=== PATIENT | female | born 1960 | race Caucasian/White ===

== ENCOUNTER 2020-08-05 01:26 | Inpatient (IN) | payer OTHER ==
[2020-08-05] VITALS (57 sets, daily range): BP systolic 78–133; BP diastolic 40–98
[~2020-08-05] VITALS: Ht 165.1 cm; Wt 81.6 kg
[2020-08-05] MEDS ORDERED: ACETAMINOPHEN 325MG TABLET PO STA (01:55)
[2020-08-05] MEDS ORDERED: AZITHROMYCIN 500 MG in DEXT 5% WATER 250 ML IV ONE (02:00)
[2020-08-05] MEDS ORDERED: SODIUM CHLORIDE 0.9% 1,000 ML IV ONE ×2 (02:00→04:45)
[2020-08-05] MEDS ORDERED: CEFTRIAXONE 1 G PREMIX 50 ML IV ONE (02:00)
[2020-08-05 02:23] LABS: BASOPHILS % 0.2 % (0.0-2.0); EOSINOPHILS % 0.1 % (0.0-5.0); HEMATOCRIT. 26.5 % (36.0-48.0); HEMOGLOBIN. 8.8 g/dL (12.0-16.0); LYMPHOCYTES % 13.7 % (20.0-50.0); MEAN CORPUSCULAR VOLUME 105.1 fL (81.0-99.0); MEAN PLATELET VOLUME 8.2 fl (7.4-10.4); MONOCYTES % 4.8 % (2.0-8.0); NEUTROPHILS % 81.2 % (40.0-76.0); PLATELET 89 x1000/uL (130-400); RED BLOOD CELL COUNT 2.52 mill/uL (4.2-5.4); RED CELL DISTRIBUTION WIDTH 15.4 % (11.6-14.6)
[2020-08-05] MEDS ORDERED: ACETAMINOPHEN 650MG SUPP PR ONE (02:30)
[2020-08-05 02:31] LABS: CHLORIDE 104 mEq/L (98-107)
[2020-08-05 02:34] LABS: ETHANOL BLOOD < 10 mg/dL
[2020-08-05 02:40] LABS: D-DIMER 18.45 mg/L FEU (<0.50); PROTHROMBIN TIME 20.1 sec (9.6-11.0)
[2020-08-05 02:46] LABS: BG BASE EXCESS -0.4 mmol/L (-2.0-2.0); BG CARBOXYHEMOGLOBIN 0.7 % (0.5-1.5); BG FRACTION INSPIRED OXYGEN 21; BG HCO3 ACT 21.6 mmol/L (22.0-26.0); BG METHEMOGLOBIN 0.1 % (0.0-1.5); BG OXYHEMOGLOBIN 93.2 % (94.0-97.0); BG PCO2 26.1 mmHg (35.0-45.0); BG PH 7.535 (7.350-7.450); BG PO2 66.3 mmHg (75.0-100.0); BG SAMPLE SITE RIGHT RADIAL; BG TOTAL HEMOGLOBIN 9.1 g/dL (12.0-18.0); BG VENT MODE ROOM AIR
[2020-08-05] MEDS: NOREPINEPHRINE 8MG/250ML PMX 250 ML IV STA ×2 (05:29→06:53)
[2020-08-05] MEDS ORDERED: NOREPINEPHRINE 8 MG in DEXTROSE 5% WATER 250 ML IV PRN (06:45)
[2020-08-05] MEDS ORDERED: NOREPINEPHRINE 8 MG in SODIUM CHLORIDE 0.9% 242 ML IV SCH (07:00)
[2020-08-05] MEDS ORDERED: NOREPINEPHRINE 8 MG in DEXT 5% WATER 242 ML IV PRN (07:45)
[2020-08-05] MEDS ORDERED: DOCUSATE SODIUM 100MG CAPSULE PO PRN (07:45)
[2020-08-05] MEDS ORDERED: ACETAMINOPHEN 325MG TABLET PO PRN ×2 (07:45)
[2020-08-05] MEDS ORDERED: KETOROLAC 15MG/ML VIAL IV PRN (07:45)
[2020-08-05] MEDS ORDERED: AZITHROMYCIN 500 MG in DEXT 5% WATER 250 ML IV SCH ×2 (07:45→21:00)
[2020-08-05] MEDS ORDERED: NITROGLYCERIN 0.4MG TABLET SL SL PRN (07:45)
[2020-08-05] MEDS ORDERED: GUAIFENESIN 200MG/10ML SUGAR FREE UDC PO PRN (07:45)
[2020-08-05] MEDS ORDERED: ALBUTEROL 6.7GM HFA INHALER ORI PRN (07:45)
[2020-08-05] MEDS ORDERED: ONDANSETRON HCL 4MG/2ML INJ IV PRN (07:45)
[2020-08-05] MEDS ORDERED: GUAIFENESIN/DM 600MG/30MG ER TAB 12HR PO SCH (07:45)
[2020-08-05] MEDS ORDERED: MAGNESIUM/ALUMINUM HYDROXIDE/SIMETHICONE 30ML UDC PO PRN (07:45)
[2020-08-05] MEDS ORDERED: CLONIDINE 0.1MG TABLET PO PRN (07:45)
[2020-08-05] MEDS: LACTULOSE 20G/30ML UDC PO SCH ×4 (08:00→20:29)
[2020-08-05 08:55] LABS: CLARITY URINE TURBID (CLEAR); COLOR URINE ORANGE (YELLOW); KETONES URINE NEGATIVE (NEGATIVE); LEUKOCYTE ESTERASE URINE 3+ (NEGATIVE); NITRITE URINE POSITIVE (NEGATIVE); OCCULT BLOOD URINE 3+ (NEGATIVE); PROTEIN URINE 3+ (NEGATIVE); SPECIFIC GRAVITY URINE 1.015 (1.005-1.030)
[2020-08-05] MEDS: CHOLECALCIFEROL (D3) 1000 UNIT TABLET PO SCH (09:00)
[2020-08-05] MEDS: ZINC SULFATE 220 MG ( 50 ) CAPSULE PO SCH (09:00)
[2020-08-05 09:38] LABS: VITAMIN B12 SERUM >2000 pg/mL pg/mL (211-911)
[2020-08-05] MEDS: PANTOPRAZOLE SODIUM 40 MG/VIAL IV SCH (09:45)
[2020-08-05] MEDS: ASCORBIC ACID 500 MG TABLET PO SCH ×2 (09:46→20:29)
[2020-08-05] MEDS: GUAIFENESIN/DM 600MG/30MG ER TAB 12HR PO SCH ×2 (09:46→20:29)
[2020-08-05 09:54] LABS: *AMPHETAMINES SCREEN URINE NEGATIVE (NEGATIVE); *BARBITURATES SCREEN URINE NEGATIVE (NEGATIVE); *BENZODIAZEPINES SCREEN URINE NEGATIVE (NEGATIVE); *COCAINE SCREEN URINE NEGATIVE (NEGATIVE)
[2020-08-05 09:55] LABS: CANNABINOID URINE SCREEN NEGATIVE (NEGATIVE); METHADONE URINE SCREEN NEGATIVE (NEGATIVE); OPIATES URINE SCREEN NEGATIVE (NEGATIVE); PHENCYCLIDINE URINE SCREEN NEGATIVE (NEGATIVE)
[2020-08-05] MEDS ORDERED: ALBUMIN HUMAN 25GM/100ML (25%) IV NR (10:15)
[2020-08-05] MEDS: NOREPINEPHRINE 8 MG in DEXT 5% WATER 242 ML IV PRN ×2 (13:24→16:55)
[2020-08-05 15:14] LABS: CREATINE KINASE MB FRACTION 3.7 ng/mL (0.5-3.6)
[2020-08-05] MEDS ORDERED: VANCOMYCIN 1500MG in DEXTROSE 5% WATER 250ML IV SCH (18:00)
[2020-08-05] MEDS ORDERED: PHYTONADIONE 10MG/ML AMP SUBCUT NR (20:00)
[2020-08-05] MEDS ORDERED: CEFTRIAXONE 1 G PREMIX 50 ML IV SCH (21:00)
[2020-08-05] MEDS: CEFEPIME 1,000 MG in DEXTROSE 5% WATER 50 ML IV SCH (21:12)
[2020-08-05] MEDS: NOREPINEPHRINE 32 MG in DEXT 5% WATER 218 ML IV PRN (22:59)
[2020-08-06] VITALS (96 sets, daily range): BP systolic 89–131; BP diastolic 52–78
[2020-08-06 00:39] LABS: CREATINE KINASE MB FRACTION 4.3 ng/mL (0.5-3.6)
[2020-08-06] MEDS: AZITHROMYCIN 500 MG in DEXT 5% WATER 250 ML IV SCH (01:13)
[2020-08-06] MEDS: LACTULOSE 20G/30ML UDC PO SCH ×6 (04:44→22:18)
[2020-08-06 05:40] LABS: BASOPHILS % 0.2 % (0.0-2.0); HEMATOCRIT. 25.8 % (36.0-48.0); HEMOGLOBIN. 8.7 g/dL (12.0-16.0); LYMPHOCYTES % 9.2 % (20.0-50.0); MEAN CORPUSCULAR HEMOGLOBIN 34.5 pg (28.0-32.0); MEAN CORPUSCULAR VOLUME 102.3 fL (81.0-99.0); MEAN PLATELET VOLUME 8.8 fl (7.4-10.4); MONOCYTES % 8.6 % (2.0-8.0); PLATELET 68 x1000/uL (130-400); RED BLOOD CELL COUNT 2.53 mill/uL (4.2-5.4); RED CELL DISTRIBUTION WIDTH 17.8 % (11.6-14.6)
[2020-08-06 05:50] LABS: CHLORIDE 106 mEq/L (98-107)
[2020-08-06 06:00] LABS: PHOSPHORUS 4.6 mg/dL (2.5-4.9)
[2020-08-06 06:29] LABS: INR 2.2; PROTHROMBIN TIME 21.8 sec (9.6-11.0)
[2020-08-06] MEDS: CHOLECALCIFEROL (D3) 1000 UNIT TABLET PO SCH (08:13)
[2020-08-06] MEDS: CEFEPIME 1,000 MG in DEXTROSE 5% WATER 50 ML IV SCH ×2 (08:13→22:19)
[2020-08-06] MEDS: GUAIFENESIN/DM 600MG/30MG ER TAB 12HR PO SCH ×2 (08:13→22:19)
[2020-08-06] MEDS: ASCORBIC ACID 500 MG TABLET PO SCH ×2 (08:13→22:18)
[2020-08-06] MEDS: ZINC SULFATE 220 MG ( 50 ) CAPSULE PO SCH (08:16)
[2020-08-06] MEDS: PANTOPRAZOLE SODIUM 40 MG/VIAL IV SCH (08:16)
[2020-08-06] MEDS ORDERED: VANCOMYCIN 1 G PREMIX 200 ML IV SCH (09:00)
[2020-08-06 11:26] LABS: BG BASE EXCESS -5.6 mmol/L (-2.0-2.0); BG CARBOXYHEMOGLOBIN 1.9 % (0.5-1.5); BG DEOXYHEMOGLOBIN 6.1 % (0.0-5.0); BG FRACTION INSPIRED OXYGEN 21; BG HCO3 ACT 18.1 mmol/L (22.0-26.0); BG METHEMOGLOBIN 0.3 % (0.0-1.5); BG OXYGEN SATURATION 93.8 % (92.0-98.5); BG OXYHEMOGLOBIN 91.7 % (94.0-97.0); BG PCO2 29.4 mmHg (35.0-45.0); BG PH 7.408 (7.350-7.450); BG PO2 69.4 mmHg (75.0-100.0); BG TOTAL HEMOGLOBIN 10.2 g/dL (12.0-18.0); BG VENT MODE ROOM AIR
[2020-08-06] MEDS ORDERED: VANCOMYCIN 1 G PREMIX 200 ML IV NR (14:00)
[2020-08-06] MEDS: NOREPINEPHRINE 32 MG in DEXT 5% WATER 218 ML IV PRN (14:14)
[2020-08-07] VITALS (83 sets, daily range): BP systolic 90–157; BP diastolic 41–100
[2020-08-07] MEDS: AZITHROMYCIN 500 MG in DEXT 5% WATER 250 ML IV SCH (01:38)
[2020-08-07] MEDS: GUAIFENESIN/DM 600MG/30MG ER TAB 12HR PO SCH ×2 (09:07→20:23)
[2020-08-07] MEDS: CHOLECALCIFEROL (D3) 1000 UNIT TABLET PO SCH (09:07)
[2020-08-07] MEDS: ASCORBIC ACID 500 MG TABLET PO SCH ×2 (09:07→20:23)
[2020-08-07] MEDS: ZINC SULFATE 220 MG ( 50 ) CAPSULE PO SCH (09:07)
[2020-08-07] MEDS: PANTOPRAZOLE SODIUM 40 MG/VIAL IV SCH (09:08)
[2020-08-07] MEDS: LACTULOSE 20G/30ML UDC PO SCH ×2 (09:08→20:22)
[2020-08-07] MEDS: CEFEPIME 1,000 MG in DEXTROSE 5% WATER 50 ML IV SCH ×2 (09:08→20:23)
[2020-08-07] MEDS: MIDODRINE HCL 2.5MG TABLET PO SCH ×2 (12:01→16:20)
[2020-08-07] MEDS: VANCOMYCIN 1 G PREMIX 200 ML IV SCH (12:01)
[2020-08-08] VITALS (57 sets, daily range): BP systolic 89–132; BP diastolic 57–85
[2020-08-08] MEDS: AZITHROMYCIN 500 MG in DEXT 5% WATER 250 ML IV SCH (00:16)
[2020-08-08] MEDS: ASCORBIC ACID 500 MG TABLET PO SCH ×2 (08:37→22:33)
[2020-08-08] MEDS: CEFEPIME 1,000 MG in DEXTROSE 5% WATER 50 ML IV SCH ×2 (08:37→22:33)
[2020-08-08] MEDS: MIDODRINE HCL 2.5MG TABLET PO SCH (08:37)
[2020-08-08] MEDS: PANTOPRAZOLE SODIUM 40 MG/VIAL IV SCH (08:37)
[2020-08-08] MEDS: LACTULOSE 20G/30ML UDC PO SCH ×2 (08:37→22:33)
[2020-08-08] MEDS: CHOLECALCIFEROL (D3) 1000 UNIT TABLET PO SCH (08:38)
[2020-08-08] MEDS: ZINC SULFATE 220 MG ( 50 ) CAPSULE PO SCH (08:38)
[2020-08-08] MEDS: GUAIFENESIN/DM 600MG/30MG ER TAB 12HR PO SCH ×2 (08:45→22:33)
[2020-08-08] MEDS: NOREPINEPHRINE 32 MG in DEXT 5% WATER 218 ML IV PRN (09:06)
[2020-08-08] MEDS ORDERED: ALBUMIN HUMAN 12.5GM/50ML (25%) IV NR (11:00)
[2020-08-08] MEDS: VANCOMYCIN 1 G PREMIX 200 ML IV SCH (11:33)
[2020-08-08] MEDS: MIDODRINE HCL 5MG TABLET PO SCH ×2 (12:50→18:13)
[2020-08-08] MEDS: ALBUTEROL 6.7GM HFA INHALER ORI SCH ×2 (18:04→23:28)
[2020-08-09] VITALS: BP 95/60
[2020-08-09] MEDS: AZITHROMYCIN 500 MG in DEXT 5% WATER 250 ML IV SCH (01:03)
[2020-08-09 04:00] VITALS: BP 91/62
[2020-08-09] MEDS: ALBUTEROL 6.7GM HFA INHALER ORI SCH ×4 (04:07→21:57)
[2020-08-09 07:57] LABS: CHLORIDE 110 mEq/L (98-107)
[2020-08-09 08:00] VITALS: BP 95/61
[2020-08-09] MEDS: ZINC SULFATE 220 MG ( 50 ) CAPSULE PO SCH (08:16)
[2020-08-09] MEDS: LACTULOSE 20G/30ML UDC PO SCH ×2 (08:16→21:57)
[2020-08-09] MEDS: PANTOPRAZOLE SODIUM 40 MG/VIAL IV SCH (08:16)
[2020-08-09] MEDS: CEFEPIME 1,000 MG in DEXTROSE 5% WATER 50 ML IV SCH ×2 (08:16→21:57)
[2020-08-09] MEDS: GUAIFENESIN/DM 600MG/30MG ER TAB 12HR PO SCH ×2 (08:17→21:58)
[2020-08-09] MEDS: ASCORBIC ACID 500 MG TABLET PO SCH ×2 (08:18→21:58)
[2020-08-09] MEDS: CHOLECALCIFEROL (D3) 1000 UNIT TABLET PO SCH (08:22)
[2020-08-09] MEDS: MIDODRINE HCL 5MG TABLET PO SCH ×3 (09:18→16:52)
[2020-08-09 12:00] VITALS: BP 127/67
[2020-08-09] MEDS: VANCOMYCIN 1 G PREMIX 200 ML IV SCH (12:07)
[2020-08-09 16:00] VITALS: BP 95/61
[2020-08-09 20:00] VITALS: BP 103/65
[2020-08-10] VITALS: BP 93/63
[2020-08-10] MEDS: ALBUTEROL 6.7GM HFA INHALER ORI SCH ×4 (03:03→20:49)
[2020-08-10 04:00] VITALS: BP 103/59
[2020-08-10] MEDS: VANCOMYCIN 1 G PREMIX 200 ML IV SCH (05:56)
[2020-08-10 08:00] VITALS: BP 99/66
[2020-08-10] MEDS: CEFEPIME 1,000 MG in DEXTROSE 5% WATER 50 ML IV SCH ×2 (08:51→20:49)
[2020-08-10] MEDS: ASCORBIC ACID 500 MG TABLET PO SCH ×2 (08:52→20:49)
[2020-08-10] MEDS: GUAIFENESIN/DM 600MG/30MG ER TAB 12HR PO SCH ×2 (08:52→20:49)
[2020-08-10] MEDS: CHOLECALCIFEROL (D3) 1000 UNIT TABLET PO SCH (08:52)
[2020-08-10] MEDS: ZINC SULFATE 220 MG ( 50 ) CAPSULE PO SCH (08:52)
[2020-08-10] MEDS: MIDODRINE HCL 5MG TABLET PO SCH ×3 (08:53→18:04)
[2020-08-10] MEDS: PANTOPRAZOLE SODIUM 40 MG/VIAL IV SCH (08:53)
[2020-08-10] MEDS: LACTULOSE 20G/30ML UDC PO SCH ×3 (09:00→18:03)
[2020-08-10 12:00] VITALS: BP 123/42
[2020-08-10 16:00] VITALS: BP 112/76
[2020-08-10 20:00] VITALS: BP 104/72
[2020-08-11] VITALS: BP 110/70
[2020-08-11] MEDS: LACTULOSE 20G/30ML UDC PO SCH ×3 (00:09→11:53)
[2020-08-11] MEDS: ALBUTEROL 6.7GM HFA INHALER ORI SCH ×3 (03:07→15:51)
[2020-08-11 04:00] VITALS: BP 113/70
[2020-08-11 08:00] VITALS: BP 116/77
[2020-08-11] MEDS: ZINC SULFATE 220 MG ( 50 ) CAPSULE PO SCH (08:38)
[2020-08-11] MEDS: CHOLECALCIFEROL (D3) 1000 UNIT TABLET PO SCH (08:38)
[2020-08-11] MEDS: PANTOPRAZOLE SODIUM 40 MG/VIAL IV SCH (08:38)
[2020-08-11] MEDS: GUAIFENESIN/DM 600MG/30MG ER TAB 12HR PO SCH (08:38)
[2020-08-11] MEDS: ASCORBIC ACID 500 MG TABLET PO SCH (08:38)
[2020-08-11] MEDS: MIDODRINE HCL 5MG TABLET PO SCH ×2 (08:38→12:02)
[2020-08-11 12:00] VITALS: BP 114/72
[2020-08-11] MEDS ORDERED: CEFTRIAXONE 1,000 MG in DEXTROSE 5% WATER 50 ML IV SCH (12:00)
[2020-08-11 12:55] VITALS: BP 114/72
== END 2020-08-11 16:25 | disposition home or self-care (01) | DRG 871 ==
LOC: ER 01:26 → MICUSO 05:29 → ENRESERV 09:52 → 7EST 08-08 13:30
PROVIDERS: ADMIT Internal Medicine; ATTEND Internal Medicine
PROC: 30233N1 Transfusion of Nonautologous Red Blood Cells into Peripheral Vein, Percutaneous Approach (ICD-10-PCS; principal; 2020-08-05)
PROC: B54BZZA Ultrasonography of Right Lower Extremity Veins, Guidance (ICD-10-PCS; 2020-08-05)
PROC: 06HY33Z Insertion of Infusion Device into Lower Vein, Percutaneous Approach (ICD-10-PCS; 2020-08-05)
PROC: 05HY33Z Insertion of Infusion Device into Upper Vein, Percutaneous Approach (ICD-10-PCS; 2020-08-05)
PROC: B54MZZA Ultrasonography of Right Upper Extremity Veins, Guidance (ICD-10-PCS; 2020-08-05)
DX: A41.89 Other specified sepsis (principal); U07.1 COVID-19; J96.01 Acute respiratory failure with hypoxia; G92 Toxic encephalopathy; J12.82 Pneumonia due to coronavirus disease 2019; E43 Unspecified severe protein-calorie malnutrition; R65.21 Severe sepsis with septic shock; N39.0 Urinary tract infection, site not specified; D68.9 Coagulation defect, unspecified; E87.4 Mixed disorder of acid-base balance; B97.89 Other viral agents as the cause of diseases classified elsewhere; E83.51 Hypocalcemia; D63.8 Anemia in other chronic diseases classified elsewhere; D69.6 Thrombocytopenia, unspecified; K72.90 Hepatic failure, unspecified without coma; F10.20 Alcohol dependence, uncomplicated; K70.31 Alcoholic cirrhosis of liver with ascites; Z68.30 Body mass index [BMI] 30.0-30.9, adult; Z79.899 Other long term (current) drug therapy; Z79.51 Long term (current) use of inhaled steroids; Z79.1 Long term (current) use of non-steroidal anti-inflammatories (NSAID)
CPT/HCPCS: 36415; 36600; 71045; 74176; 76937; 80048; 80053; 80061; 80202; 80305; 80307; 80320; 80329; 81003; 82140; 82375; 82550; 82553; 82607; 82728; 82746; 82805; 83036; 83540; 83550; 83605; 83735; 84100; 84145; 84484; 85025; 85379; 86850; 86900; 86920; 87077; 87186; 93005; 93970; 96365; 99291; A6261; C1725; C9113; J0456; J0692; J0696; J2405; J3370; J3430; J3490; J7030; J7040; J7050; J7060; P9016; P9047; U0003; G0480